=== PATIENT | female | born 1985 | race Caucasian/White ===

== ENCOUNTER → 2018-03-25 | Outpatient (CLI) | payer BC ==
[~2018-03-25] MED LIST: PREN-16 PO
[2018-03-27 03:10] LABS: CHLAMYDIA TRACHOMATIS, NAA Negative (Negative); NEISSERIA GONORRHOEAE, NAA Negative (Negative)
== END ==
LOC: LAB 16:00 → LAB SHORT 16:00
PROVIDERS: Nurse Practitioner Family
DX: Z11.3 Encounter for screening for infections with a predominantly sexual mode of transmission (principal)
CPT/HCPCS: 87491; 87591

== ENCOUNTER 2018-04-28 17:04 | Emergency (ER) | payer BC ==
[~2018-04-28] VITALS: Ht 162.6 cm; Wt 54.4 kg
[2018-04-28 18:56] LABS: BASOPHILS ABSOLUTE AUTO 0.07 K/mm3 (0.00-0.23); BASOPHILS PERCENT AUTO 1 % (0-2); EOSINOPHILS ABSOLUTE AUTO 0.14 K/mm3 (0.00-0.68); EOSINOPHILS PERCENT AUTO 2 % (0-6); IMMATURE GRAN ABSOLUTE AUTO 0.02 K/mm3 (0.00-0.10); IMMATURE GRAN PERCENT AUTO 0 % (0-1); LYMPHOCYTES ABSOLUTE AUTO 2.76 K/mm3 (0.84-5.20); LYMPHOCYTES PERCENT AUTO 31 % (21-46); MONOCYTES ABSOLUTE AUTO 0.47 K/mm3 (0.16-1.47); MONOCYTES PERCENT AUTO 5 % (4-13); Mean Corpuscular HGB 28.8 pg (26.0-34.0); Mean Corpuscular HGB Conc 32.5 g/dL (31.5-36.5); Mean Corpuscular Volume 89 fL (80-100); Mean Platelet Volume 10.3 fL (9.1-12.4); NEUTROPHILS ABSOLUTE AUTO 5.58 K/mm3 (1.96-9.15); NEUTROPHILS PERCENT AUTO 62 % (41-73); Platelet Count 284 K/mm3 (150-400); RDW Coefficient Variation 13.2 % (11.7-14.2); RDW Standard Deviation 42.9 fL (35.1-46.3); Red Blood Cell Count 4.52 M/mm3 (3.80-5.20); White Blood Cell Count 9.04 K/mm3 (4.00-11.30)
[2018-04-28] MEDS ORDERED: ONDA4ODT MM (20:36)
== END 2018-04-28 21:14 | disposition home or self-care (01) ==
LOC: ER 17:04
PROVIDERS: Emergency Medicine
DX: N92.6 Irregular menstruation, unspecified (principal); Z91.013 Allergy to seafood; Z79.899 Other long term (current) drug therapy; F17.200 Nicotine dependence, unspecified, uncomplicated
CPT/HCPCS: 36415; 76801; 76817; 76830; 84702; 85025; 96361; 96374; 96375; 99283-25; J1885; J2405; J7030

== ENCOUNTER → 2018-07-03 | Outpatient (CLI) | payer BC ==
[~2018-07-03] MED LIST changes: +ONDA4ODT MM
== END | disposition home or self-care (01) ==
LOC: LAB SHORT 12:13 → PLD 12:13
DX: N72 Inflammatory disease of cervix uteri (principal); N85.8 Other specified noninflammatory disorders of uterus
CPT/HCPCS: 88305

== ENCOUNTER → 2018-07-22 | Outpatient (CLI) | payer BC | END | disposition home or self-care (01) | LOC: PLD 08:20 → LAB SHORT 08:20 | DX: N87.9 Dysplasia of cervix uteri, unspecified (principal) | CPT/HCPCS: 88305 ==

== ENCOUNTER → 2018-08-04 | Outpatient (CLI) | payer BC ==
[2018-08-05 09:54] LABS: Candida species (DNA Probe) Negative (NEGATIVE); G. vaginalis (DNA Probe) Positive (NEGATIVE); T. vaginalis (DNA Probe) Negative (NEGATIVE)
== END | disposition home or self-care (01) ==
LOC: LAB 14:28 → LAB SHORT 14:28
PROVIDERS: Obstetrics & Gynecology
DX: N76.0 Acute vaginitis (principal)
CPT/HCPCS: 87480; 87510; 87660

== ENCOUNTER 2019-09-03 16:07 | Emergency (ER) | payer BC, OTHER ==
[~2019-09-03] VITALS: Ht 162.6 cm; Wt 59.0 kg
[2019-09-03] MEDS ORDERED: BUPR75 PO (16:19)
== END 2019-09-03 17:15 | disposition home or self-care (01) ==
LOC: ER 16:07
DX: S71.111A Laceration without foreign body, right thigh, initial encounter (principal); Z91.013 Allergy to seafood; Z87.891 Personal history of nicotine dependence; V91.8 Other injury due to other accident to watercraft
CPT/HCPCS: 12002; 99282-25

== ENCOUNTER 2020-07-07 10:51 | Day surgery (SDC) | payer BC, OTHER ==
[~2020-07-07] VITALS: Ht 162.6 cm; Wt 64.3 kg
[~2020-07-07 10:51] MED LIST changes: +BUPR75 PO; +HYDROCODONE-AC1 EAC5 PO; +ZYRTEC10 M2 PO
--- NOTE | 2020-07-07 12:18 | NUR ---
07/07/20 1218 ESTER PRATT PT TO PRE OP - VSS ON ROOM AIR. IV TO LEFT HAND. LIVIER TO LEFT FOOT. ENGAGED IN PRE OP TEACHING AND ALL QUESTIONS ASKED AND ANSWERED.
--- NOTE | 2020-07-07 13:13 | NUR ---
07/07/20 1313 Matilda Austin BUPIVACAINE 0.5% 30 MLS MIXED W/ EPI 0.15 MLS BY RN PER ORDER TO = BUPIVACAINE 0.5% 1:200,000 FOR INJECTION AT OPSITE BY DR. CLAIRE.
--- NOTE | 2020-07-07 14:28 | NUR ---
07/07/20 1428 Sydnee Harris PT DENIES PAIN, DISCOMFORT IN SDU. TOLERATING PO INTAKE WELL. ICE AND ELEVATION IMPLEMENTED. PT VERY ALERT AND STATES SHE IS READY TO GO HOME.
== END 2020-07-07 14:42 | disposition home or self-care (01) ==
LOC: ORSCSDS 10:51
PROVIDERS: Podiatrist Foot & Ankle Surgery
PROC: 0QSH04Z Reposition Left Tibia with Internal Fixation Device, Open Approach (ICD-10-PCS; principal; 2020-07-07 13:30)
PROC: 0QPH04Z Removal of Internal Fixation Device from Left Tibia, Open Approach (ICD-10-PCS; principal; 2020-07-07 13:30)
DX: S82.52XA Displaced fracture of medial malleolus of left tibia, initial encounter for closed fracture (principal); M25.572 Pain in left ankle and joints of left foot; T84.84XA Pain due to internal orthopedic prosthetic devices, implants and grafts, initial encounter; F17.210 Nicotine dependence, cigarettes, uncomplicated; Z79.899 Other long term (current) drug therapy
CPT/HCPCS: C1713; J0171; J0690; J1100; J1885; J2001; J2250; J2370; J2405; J2704; J3010; J7120

== ENCOUNTER 2023-12-06 01:53 | Emergency (ER) | payer BC, OTHER ==
[~2023-12-06] VITALS: Ht 165.1 cm; Wt 61.2 kg
[2023-12-06 01:59] VITALS: BP 111/81
[2023-12-06] MEDS ORDERED: Ondansetron HCl 2 MG / ML 2ML Vial IV ONE (02:15)
[2023-12-06] MEDS ORDERED: NS 1,000 ML IV SCH (02:15)
[2023-12-06] MEDS ORDERED: RX Prepack 2 Tabs Ondansetron ODT 4MG UD ONE (03:20)
== END 2023-12-06 03:30 | disposition home or self-care (01) ==
LOC: ER 01:53
DX: F10.129 Alcohol abuse with intoxication, unspecified (principal); E86.0 Dehydration; R11.0 Nausea; Z87.891 Personal history of nicotine dependence
CPT/HCPCS: 99284; A9270; J2405; J7030

== ENCOUNTER 2024-12-31 13:45 | Inpatient (IN) | payer BC, OTHER ==
[2024-12-31] VITALS (8 sets, daily range): BP systolic 108–132; BP diastolic 59–74
[~2024-12-31] VITALS: Ht 162.6 cm; Wt 84.4 kg
[2024-12-31] MEDS ORDERED: OXYTOCIN/RINGER'S LACTATE 500 ML IV PRN (14:30)
[2024-12-31] MEDS ORDERED: Methylergonovine Maleate 0.2MG / ML 1ML Amp IM PRN ×2 (14:30→23:15)
[2024-12-31] MEDS ORDERED: Carboprost Tromethamine 250 MCG/ML 1ML Amp IM PRN (14:30)
[2024-12-31] MEDS ORDERED: Tranexamic Acid 100 ML IV SCH (14:30)
[2024-12-31] MEDS ORDERED: Ondansetron HCl 2 MG / ML 2ML Vial IV PRN (14:30)
[2024-12-31] MEDS ORDERED: Oxytocin 10 Unit / ML Vial IM PRN (14:30)
[2024-12-31 15:25] LABS: BASOPHILS ABSOLUTE AUTO 0.04 K/mm3 (0.00-0.23); BASOPHILS PERCENT AUTO 0 % (0-2); EOSINOPHILS ABSOLUTE AUTO 0.09 K/mm3 (0.00-0.68); EOSINOPHILS PERCENT AUTO 1 % (0-6); Hematocrit 31.9 % (33.0-51.0); Hemoglobin 10.7 g/dL (11.5-16.0); IMMATURE GRAN ABSOLUTE AUTO 0.04 K/mm3 (0.00-0.10); IMMATURE GRAN PERCENT AUTO 0 % (0-1); LYMPHOCYTES ABSOLUTE AUTO 1.27 K/mm3 (0.84-5.20); LYMPHOCYTES PERCENT AUTO 12 % (21-46); MONOCYTES ABSOLUTE AUTO 0.51 K/mm3 (0.16-1.47); MONOCYTES PERCENT AUTO 5 % (4-13); Mean Corpuscular HGB Conc 33.5 g/dL (31.5-36.5); Mean Corpuscular Volume 86 fL (80-100); NEUTROPHILS ABSOLUTE AUTO 8.61 K/mm3 (1.96-9.15); NEUTROPHILS PERCENT AUTO 82 % (41-73); NRBC ABSOLUTE 0.00 K/mm3 (0.00-0.02); NRBC Auto 0.0 /100 WBC (0.0-0.2); Platelet Count 176 K/mm3 (150-400); RDW Coefficient Variation 13.7 % (11.7-14.2); RDW Standard Deviation 42.1 fL (35.1-46.3)
[2024-12-31] MEDS ORDERED: OXYTOCIN/RINGER'S LACTATE 500 ML IV SCH ×2 (18:15→23:20)
[2024-12-31] MEDS ORDERED: ePHEDrine Sulfate 50 MG/ML 1ML Injection XX PRN (19:50)
[2024-12-31] MEDS ORDERED: FentaNYL 2mcg/ml-Bup 0.1% Epd 250 ML EPI PRN (19:50)
[2024-12-31] MEDS ORDERED: NS 250 ML IV PRN (20:05)
[2024-12-31] MEDS ORDERED: FentaNYL Citrate 50 MCG/ML 2 ML Injection ONE (22:09)
[2024-12-31] MEDS ORDERED: FentaNYL Citrate 50 MCG/ML 2 ML Injection IV ONE (22:15)
[2024-12-31] MEDS ORDERED: Ketorolac Tromethamine 30mg Vial IV PRN (23:20)
[2024-12-31] MEDS ORDERED: Oxytocin 10 Unit / ML Vial IM ONE (23:20)
[2024-12-31] MEDS ORDERED: FLU VACC TS2025-26(6MOS UP)/PF 45 MCG/0.5 ML SYRINGE IM ONE (23:25)
[2024-12-31] MEDS ORDERED: Benzocaine Topical Anesthetic Spray 60GM TOP PRN (23:25)
[2024-12-31] MEDS ORDERED: Acetaminophen/Codeine 300-30 mg PO PRN (23:25)
[2024-12-31] MEDS ORDERED: Witch Hazel/Glycerin PADS TOP PRN (23:25)
[2025-01-01 03:54] VITALS: BP 105/62
[2025-01-01 07:04] LABS: BASOPHILS ABSOLUTE AUTO 0.05 K/mm3 (0.00-0.23); BASOPHILS PERCENT AUTO 0 % (0-2); EOSINOPHILS ABSOLUTE AUTO 0.03 K/mm3 (0.00-0.68); EOSINOPHILS PERCENT AUTO 0 % (0-6); Hematocrit 29.6 % (33.0-51.0); Hemoglobin 9.8 g/dL (11.5-16.0); IMMATURE GRAN ABSOLUTE AUTO 0.05 K/mm3 (0.00-0.10); IMMATURE GRAN PERCENT AUTO 0 % (0-1); LYMPHOCYTES ABSOLUTE AUTO 1.35 K/mm3 (0.84-5.20); LYMPHOCYTES PERCENT AUTO 9 % (21-46); MONOCYTES ABSOLUTE AUTO 0.96 K/mm3 (0.16-1.47); MONOCYTES PERCENT AUTO 6 % (4-13); Mean Corpuscular HGB Conc 33.1 g/dL (31.5-36.5); Mean Corpuscular Volume 86 fL (80-100); NEUTROPHILS ABSOLUTE AUTO 12.68 K/mm3 (1.96-9.15); NEUTROPHILS PERCENT AUTO 84 % (41-73); NRBC ABSOLUTE 0.00 K/mm3 (0.00-0.02); NRBC Auto 0.0 /100 WBC (0.0-0.2); Platelet Count 144 K/mm3 (150-400); RDW Coefficient Variation 13.7 % (11.7-14.2); RDW Standard Deviation 42.2 fL (35.1-46.3)
[2025-01-01 07:59] VITALS: BP 100/58
[2025-01-01] MEDS ORDERED: Prenatal Vit/FE Fumarate/FA 1 Tab PO SCH (09:00)
[2025-01-01 11:41] VITALS: BP 99/67
[2025-01-01 18:04] VITALS: BP 109/57
[2025-01-01 19:40] VITALS: BP 114/64
[2025-01-01 23:29] VITALS: BP 107/65
--- NOTE | 2025-01-04 10:34 | NUR ---
PT HAD PPFU WITH TODAY AT 10:00 AM. PT NO SHOWED. RN CALLED PT AND HAD NO ANSWER.
== END 2025-01-01 23:41 | disposition home or self-care (01) | DRG 806 ==
LOC: OBS 13:45 → BC 13:45 → OBS 14:08 → BC 14:09
PROVIDERS: ADMIT Registered Nurse Community Health
PROC: 10E0XZZ Delivery of Products of Conception, External Approach (ICD-10-PCS; principal; 2024-12-31)
DX: O99.344 Other mental disorders complicating childbirth (principal); O98.32 Other infections with a predominantly sexual mode of transmission complicating childbirth; Z37.0 Single live birth; A60.00 Herpesviral infection of urogenital system, unspecified; Z3A.38 38 weeks gestation of pregnancy; Z98.890 Other specified postprocedural states; Z79.899 Other long term (current) drug therapy; F41.0 Panic disorder [episodic paroxysmal anxiety]; F32.A Depression, unspecified
CPT/HCPCS: 36415; 82947; 85025; 86850; 86900; 86901; 86923; 99214; A9270; J1885; J2590; J7120

== ENCOUNTER 2025-02-24 09:49 | Day surgery (SDC) | payer BC, OTHER ==
[~2025-02-24] VITALS: Ht 162.6 cm; Wt 71.1 kg
[~2025-02-24 09:49] MED LIST changes: +Bupivacaine 0.5% W/EPI 1:200000 SDV 30 ML Vial ONE
[2025-02-24] MEDS ORDERED: CeFAZolin Sodium 2,000 MG VIAL ONE (09:57)
[2025-02-24] MEDS ORDERED: IBUP200 PO (10:20)
[2025-02-24] MEDS ORDERED: [UNRECOGNIZED DRUG - OTHER] (10:23)
[2025-02-24] MEDS ORDERED: MORINGA (10:23)
[2025-02-24] MEDS ORDERED: BREWERS YEAST (10:24)
[2025-02-24] MEDS ORDERED: [UNRECOGNIZED DRUG - OTHER] (10:24)
[2025-02-24] MEDS ORDERED: FENUGREEK (10:25)
[2025-02-24] MEDS ORDERED: Midazolam HCl 1MG / ML 2ML Vial ONE (11:15)
[2025-02-24] MEDS ORDERED: FentaNYL Citrate 50 MCG/ML 2 ML Injection ONE ×2 (11:15→13:07)
[2025-02-24] MEDS ORDERED: Sugammadex Sodium 200 MG/2ML SDV (100 MG/ML) ONE ×2 (11:15→12:25)
[2025-02-24] MEDS ORDERED: Rocuronium Bromide 10 MG/ML 5ML Injection IV ONE (11:43)
[2025-02-24] MEDS ORDERED: Ondansetron HCl 2 MG / ML 2ML Vial ONE (12:25)
[2025-02-24] MEDS ORDERED: Ketorolac Tromethamine 30mg Vial ONE (12:34)
--- NOTE | 2025-02-24 13:16 | NUR ---
02/24/25 1316 Jenni Wilder PT C/O 08/14 PAIN DURING REPORT. REPORT GIVEN TO BRIANNA Patel RN. BRIANNA PULLING MEDS FOR PAIN PER ANESTHESIA ORDERS WILL GIVE IN SDU. SPOKE WITH PATIENT IN PACU WHILE AWAKE ABOUT PROCEDURE.
--- NOTE | 2025-02-24 13:23 | NUR ---
02/24/25 1323 BRIANNA SINGLETON PT CHILLED. USING A BEAR HUGGER UNDER BLANKETS TO WARM HER UP. THROAT IS VERY PAINFUL, 10/14. EATING A POPSICLE AT PRESENT. STILL IN BED AT THIS TIME.
[2025-02-24] MEDS ORDERED: OxyCODONE 5 mg/Acetamin 325 mg TABLET ONE (13:43)
[2025-02-24 13:52] VITALS: BP 107/76
== END 2025-02-24 14:56 | disposition home or self-care (01) ==
LOC: ORSCSDS 09:49
PROVIDERS: Obstetrics & Gynecology
PROC: 0UB74ZZ Excision of Bilateral Fallopian Tubes, Percutaneous Endoscopic Approach (ICD-10-PCS; principal; 2025-02-24 11:15)
DX: Z30.2 Encounter for sterilization (principal); Z87.891 Personal history of nicotine dependence
CPT/HCPCS: 82947; 88302; A9270; J0690; J1885; J2250; J2405; J2704; J3010; J7120